=== PATIENT | male | born 1955 | race Caucasian/White ===

== ENCOUNTER 2023-10-24 10:43 | Emergency (ER) | payer MEDICARE ==
[~2023-10-24] VITALS: Ht 167.6 cm; Wt 79.4 kg
[2023-10-24 10:44] VITALS: BP 153/87; PULSE 86; RESP 18
[2023-10-24 11:09] LABS: RAPID GROUP A STREP negative (NEGATIVE)
[2023-10-24] MEDS: DEXAMETHASONE SOD PHOSPHATE 4 MG/ML 1ML VIAL IM ONE (11:20)
[2023-10-24] MEDS: KETOROLAC 60 MG VIAL (30MG/ML) IM ONE (11:21)
[2023-10-24 11:22] LABS: INFLUENZA TYPE A Negative For Type A (NEGATIVE); INFLUENZA TYPE B Negative For Type B (NEGATIVE)
[2023-10-24 11:24] LABS: SARS-CoV-2, RNA, NAAT POSITIVE SARS CoV-2 (NEGATIVE)
[2023-10-24] MEDS ORDERED: FLUT16H NASAL (11:40)
[2023-10-24] MEDS ORDERED: MOLN200C PO (11:40)
[2023-10-24] MEDS ORDERED: LORA10TA7 PO (11:40)
== END 2023-10-24 11:46 | disposition home or self-care (01) ==
LOC: EDH 10:43
DX: U07.1 COVID-19 (principal); I10 Essential (primary) hypertension; F32.A Depression, unspecified
CPT/HCPCS: 99284; 87635; 87880; 87804 ×2; 96372 ×2; J1100; J1885